=== PATIENT | male | born 1990 | race American Indian/Alaskan Native ===

== ENCOUNTER 2021-10-16 09:29 | Emergency (ER) | payer BC ==
[2021-10-16 12:18] VITALS: BP 139/87
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
== END 2021-10-16 14:23 | disposition home or self-care (01) ==
LOC: ED 09:29
DX: M25.531 Pain in right wrist (principal); V43.52XA Car driver injured in collision with other type car in traffic accident, initial encounter; Y93.89 Activity, other specified; Y92.89 Other specified places as the place of occurrence of the external cause; Y99.8 Other external cause status
CPT/HCPCS: 99282